=== PATIENT | male | born 1995 | race Caucasian/White ===

== ENCOUNTER → 2017-07-13 08:23 | Outpatient (CLI) | payer OTHER, SELFPAY ==
--- NOTE | 2017-07-13 08:34 | US_ITS ---
STUDY: ABDOMINAL ULTRASOUND REASON FOR EXAM: Male, 22 years old. 4 month history of left abdominal pain. TECHNIQUE: Transabdominal ultrasound was performed with real-time and static florez scale imaging. TECHNICAL QUALITY: Adequate. COMPARISON: None. FINDINGS: Liver: The liver measures 14.6 cm. There is normal echogenicity of the liver. The bile ducts are within normal limits. There is hepatic color flow. The direction of portal flow is hepatopetal. There is no demonstrated mass lesion. Portal vein measurement: Gallbladder: Normal distended gallbladder. The gallbladder wall measures 2.6 mm. There is a negative sonographic Corona's sign. There is no pericholecystic fluid. There are no gallstones. Common Bile Duct (C.B.D.): The common bile duct measures 4.0 mm. Pancreas: Normal size of the head, body and tail of the pancreas. There is normal echogenicity of the pancreas. There is no demonstrated pancreatic mass or cyst. Spleen: Normal size of the spleen. The spleen measures 11.2 cm x 4.7 cm x 4.6 cm. Right Kidney: Normal size of the right kidney. The right kidney measures 10.8 cm x 4.9 cm x 4.9 cm. Normal renal cortex. The right cortex measures 1.7 cm. There is no demonstrated renal mass or cyst. There is no right hydronephrosis. Left Kidney: Normal size of the left kidney. The left kidney measures 10.6 cm x 5.5 cm x 5.8 cm. Normal renal cortex. The left cortex measures 1.6 cm. There is no demonstrated renal mass or cyst. There is no left hydronephrosis. Aorta: Unremarkable I.V.C.: The IVC is patent. There is no ascites. US/Abdomen Complete IMPRESSION: Normal abdominal ultrasound examination. Electronically Signed: Jason Sarkar MD at 14:14 EST Tel [phone], Service support ,
== END ==
PROVIDERS: Family Provider Family Medicine; PCP Family Medicine; Visit Provider Family Medicine
DX: R10.9 Unspecified abdominal pain (principal)
CPT/HCPCS: 76700

== ENCOUNTER → 2017-08-07 07:10 | Outpatient (CLI) | payer OTHER, SELFPAY ==
--- NOTE | 2017-08-07 07:12 | CT_ITS ---
STUDY: CT ABDOMEN AND PELVIS WITH CONTRAST REASON FOR EXAM: Male, 22 years old. Left lower quadrant pain and pressure. RADIATION DOSAGE (If Supplied By Facility): CTDIvol = ( 9.15 ) mGy, DLP = ( 412.84 ) mGycm TECHNIQUE: Transaxial images were obtained from the dome of the diaphragm to the symphysis pubis with oral contrast. 100CC ml of Isovue 300 contrast was administered. Sagittal and coronal images were reconstructed. Individualized dose optimization techniques were used for this CT. COMPARISON: None. FINDINGS: The visualized lung bases are unremarkable. The visualized portions of the heart are within normal limits. Normal liver. Normal gallbladder and extrahepatic biliary system. Normal spleen. Normal pancreas. Normal bilateral adrenal glands. Normal right kidney. Normal left kidney. Normal visualized stomach. Normal small intestine. There are scattered colonic diverticula consistent with diverticulosis. The appendix is visualized and appears normal. Normal abdominal aorta. Normal inferior vena cava. Normal retroperitoneum. Normal urinary bladder. Normal abdominal wall. Straightening of the normal lumbar lordosis. CT/Abdomen/Pelvis WITH Contrast IMPRESSION: Scattered sigmoid diverticula. No inflammatory changes are seen at this time. Electronically Signed: Jason Sarkar MD at 12:58 EST Tel [phone], Service support ,
== END ==
PROVIDERS: Family Provider Family Medicine; PCP Family Medicine; Visit Provider Family Medicine
DX: R10.9 Unspecified abdominal pain (principal)
CPT/HCPCS: 74177; Q9967

== ENCOUNTER 2018-01-14 01:11 | Emergency (ER) | payer OTHER, SELFPAY ==
[2018-01-14 01:11] VITALS: BP 155/90; PULSE 94; RESP 16; TEMP 37.1; O2SAT 100; BMI 24.5
--- NOTE | 2018-01-14 01:47 | EKG12_ITS ---
Test Reason : NEURO Blood Pressure : / mmHG Vent. Rate : 090 BPM Atrial Rate : 090 BPM P-R Int : 150 ms QRS Dur : 100 ms QT Int : 346 ms P-R-T Axes : 071 051 042 degrees QTc Int : 423 ms Normal sinus rhythm Normal ECG Confirmed by JAX RM MD ([id number]), editor continuity and script [employer] ([id number]) on 01/15/2018 3:18:20 PM Referred By: ELIZABETH Confirmed By:JAX RM MD
--- NOTE | 2018-01-14 01:47 | CT_ITS ---
STUDY: CT BRAIN WITHOUT CONTRAST REASON FOR EXAM: Male, 22 years old. LT VISUAL CHANGE X 2 AND LT SIDED TINGLING X 1 YEAR,ELEVATED BP,PT WAS TOLD HE HAS HENSON'S PALSY,SHIELDED RADIATION DOSAGE (If Supplied By Facility): CTDIvol = ( 44.99 ) mGy, DLP = ( 796.11 ) mGycm TECHNIQUE: Transaxial CT imaging of the brain was performed without administration of intravenous contrast material. Individualized dose optimization techniques were used for this CT. COMPARISON: None. FINDINGS: Normal soft tissue structures. Normal calvarium. Normal size ventricles and extra-axial spaces for the patient's age. Normal white matter tracts of the cerebral hemispheres. Normal basal ganglia and thalami. Normal brainstem. Normal cerebellum. There is no intracranial hemorrhage. There are no findings of an acute ischemic infarction. Normal visualized paranasal sinuses. CT/Brain/Head without Contrast IMPRESSION: Normal unenhanced CT scan of the brain. Electronically Signed: Radha Rousseau MD at 2:26 EDT Tel , Service support ,
--- NOTE | 2018-01-14 01:51 | ED.DCSUM_ITS ---
- ER Visit Summary Date of Service: 01/14/18 Chief Complaint: Left-sided visual change History of Present Illness: The patient is a 22 M states for the last year he has had intermittent episodes where he has decreased or blurry vision in his left eye. He usually returns. He is also had some left-sided tingling. He has never had any imaging studies for this. He said one time he was told it might of been a migraine headache. Another time he was told he may have had Bravo's palsy because he had facial paralysis at that time. He said tonight it occurred while at work and he had a headache after the episode. He states his vision is slightly decreased but much better than it was an hour ago. He denies any trouble moving his arms or legs. Denies any trouble walking currently. Denies any head trauma. Otherwise he has no other significant past medical currently is on no medications. Physical Examination: Very well-appearing young male. Vital signs are stable and afebrile. HEENT exam unremarkable. No facial droop. Tongue midline. Normal speech. Pupils are round reactive light. Extraocular motions are intact. No nystagmus. No entrapment. He is able to wrinkle his forehead. Neck nontender. Lungs clear to auscultation bilaterally. Heart regular rhythm no murmur. Abdomen soft nontender. Normal bowel sounds no peritoneal signs. He is moving all 4 extremities. They are neurovascularly intact. He has 5 out of 5 ticket maker strength in the upper extremities. Normal range of motion. Dorsi plantar flexion intact. 5 out of 5 motor strength normal sensation. Back exam normal. Neurologic exam is normal. His NIH 0. Fingertip to nose and heel to thompson are both within normal limits. He gets up and ambulates without any difficulty. Negative Romberg. He can tight rope walk without any difficulty and no ataxia. He has normal speech and no facial droop. Test Results: CBC normal. BMP normal. Visual acuity 20/20 right eye and left eye and bilaterally. Normal. EKG sinus rhythm rate of 90 with no acute abnormal is. CT of the brain without contrast showed no acute abnormality read both by the radiologist Emergency Department Course and Treatment: Patient will be treated with IV Toradol for his headache. Treatment Plan: Repeat exam at 49 patient is doing well. Neurologic exam remains normal. His vision is back to normal. His headache is resolved with IV Toradol. He and I discussed all his test results. Disposition: Discharge Impression: Transient decreased left eye vision and headache secondary to migraine This note was generated with [employer] dictation software. It may contain incorrect words, spelling, and punctuation that were not noted in review of the chart prior to signing ED Disposition - Plan for ED Patient: Chief Complaint: Neuro S/Sx Referrals: Justin Johnson [Primary Care Provider] -
[2018-01-14] MEDS: Ketorolac 30 MG/ML Syringe IV (02:00)
[2018-01-14 02:09] LABS: Hematocrit 43.5 % (40-54); Hemoglobin 15.4 g/dl (13.0-16.5); Mean Corp Hgb Conc 35.4 g/gl (32-36); Mean Corpuscular Hgb 31.5 pg (27.0-32.0); Mean Platelet Vol. 9.9 fl (6.2-12.0); Platelet Count 246 K/mm3 (150-450); RBC Distribution Width CV 12.1 % (11.6-14.6); RBC Distribution Width SD 38.8 fl (35.1-43.9); Red Blood Count 4.89 M/mm3 (4.6-6.2); White Blood Count 5.2 K/mm3 (4.4-11.0)
[2018-01-14 02:12] LABS: Scan Indicated on CBC? Y/N NO
[2018-01-14 02:17] LABS: Anion Gap 5 (5-15); BUN 15 mg/dL (7-18); BUN/Creat Ratio 14.2 RATIO (10-20); Calcium,Total 9.2 mg/dL (8.5-10.1); Chloride 106 mmol/L (98-107); Creatinine, Serum 1.06 mg/dL (0.70-1.30); EST Glomerular Filtration Rate 91 mL/min (>60); Est Glom Filt Rate - Afr Amer 110 mL/min (>60); Estimated Creatinine Clearance 107.46 ml/min; Glucose 100 mg/dL (74-106); Potassium 3.8 mmol/L (3.5-5.1); Sodium Level 139 mmol/L (136-145)
--- NOTE | 2018-01-14 02:59 | ED.DEP ---
ED Disposition - Plan for ED Patient: Disposition: Home or Assisted Living Chief Complaint: Neuro S/Sx Instructions: ED Headache Migraine Prescriptions: Sumatriptan Succinate [Imitrex] 25 mg PO Q4H PRN PRN #7 tab PRN Reason: Headache Referrals: Justin Johnson [Primary Care Provider] - As Needed Additional Instructions: All your labs and CAT scan your brain were normal tonight. I feel that your visual change and headache are secondary to a migraine. Follow-up with your as needed.
[2018-01-14 03:05] VITALS: BP 115/75; PULSE 65; RESP 18; O2SAT 99
== END 2018-01-14 03:12 | disposition home or self-care (01) ==
PROVIDERS: Emergency Provider Emergency Medicine; Family Provider Family Medicine; PCP Family Medicine
DX: G43.909 Migraine, unspecified, not intractable, without status migrainosus (principal)
CPT/HCPCS: 70450; 80048; 85027; 93005; 99284; A4216

== ENCOUNTER 2019-01-17 00:05 | Emergency (ER) | payer OTHER, SELFPAY ==
[2019-01-17 00:06] VITALS: BP 125/74; PULSE 82; RESP 18; TEMP 36.6; O2SAT 98; BMI 24.0
[2019-01-17 00:18] VITALS: TEMP 36.6
--- NOTE | 2019-01-17 00:19 | ED.VIS.GEN ---
History of Present Illness Chief Complaint: Laceration Informant: Patient Narrative: She had an injury to his left thumb while at work. He got it caught on a piece of steel and suffered a laceration to the inside of his left thumb. Unsure about his last tetanus. Stated he did not smash it. He comes for wound care. Current severity is mild. Past Medical History - Allergies and Home Meds Allergies/Adverse Reactions: Allergies venom-honey bee [bee venom (honey bee)] Allergy (Verified 01/17/19 00:05) Swelling Primary Care Physician: Justin Johnson MD [Primary Care Provider] - Prior records reviewed: Yes Past Medical History: - - Reviewed Surgical History: - - Reviewed Smoking Status: Never smoker Alcohol: None Drugs: None Review of Systems General: Denies: Chills, Fever, Sweats Eyes: Denies: Visual changes - bilaterally, Diplopia ENT: Denies: Rhinorrhea, Sore throat Cardiovascular: Denies: Chest pain, Palpitations Respiratory: Denies: Dyspnea, Cough, Dyspnea on exertion Gastrointestinal: Denies: Abdominal pain, Nausea, Vomiting, Diarrhea, Melena, Hematochezia Genitourinary: Denies: Dysuria, Hematuria, Frequency Musculoskeletal: Denies: Back pain, Extremity Pain Skin: Reports: Wounds. Denies: Rash Neurological: Denies: Headache, Weakness, Numbness Physical Exam Vital Signs/Narrative: Vital Signs Temp Pulse Resp BP Pulse Ox 01/17/19 00:06 97.9 F 82 18 125/74 H 98 General: Well nourished, Well developed, No Acute Distress Head: Normocephalic, Atraumatic Eyes: Perrl, EOMI ENT: Moist mucous membranes, No rhinorrhea Neck: Supple, Nontender Cardiovascular: Regular rate, Regular rhythm, No murmurs Respiratory: No distress, CTA bilaterally, Chest nontender Abdomen: Soft, Nontender, Nondistended, Normal bowel sounds Back: Nontender, Normal Inspection Extremities: No edema. Negative for: Nontender Skin: Normal color, No rash, Trauma - On3 centimeter laceration to the distal pad left medial thumb. Normal range of motion. Distal neurovascular intact. Neurological: Alert, Oriented x3, Cranial nerves II-XII grossly intact, Normal Strength, Normal Sensation Psychological: Normal affect, Normal Mood Diagnostic/Tx/Re-eval - Medical Decision Making Tetanus updated. Patient consented for wound closure. Wound was cleaned with chlorhexidine. Wash with saline. Anesthetized with 1 cc of 1% lidocaine. No foreign body seen in a bloodless field. Wound was closed with simple suture x2. He will follow-up with Worker[employer]. for suture removal bacitracin applied ED Disposition - Plan for ED Patient: Disposition: Home or Assisted Living Diagnosis: Thumb laceration Instructions: LACERATION, All Referrals: [facility] [GROUP OF PHYSICIANS] - Additional Instructions: Sutures removed in 10 to 14 days
[2019-01-17] MEDS: Diphth,Pertuss(Acell),Tet Vac 0.5 ML Vial IM (00:32)
[2019-01-17] MEDS: BACITRACIN 15 GM Tube 1 APPLIC TOPICAL (00:35)
== END 2019-01-17 00:55 | disposition home or self-care (01) ==
LOC: ED 00:30
PROVIDERS: Emergency Provider Emergency Medicine; Family Provider Family Medicine; PCP Family Medicine
DX: S61.012A Laceration without foreign body of left thumb without damage to nail, initial encounter (principal); W31.9XXA Contact with unspecified machinery, initial encounter; Y93.89 Activity, other specified; Y92.89 Other specified places as the place of occurrence of the external cause; Y99.0 Civilian activity done for income or pay
CPT/HCPCS: 12002; 90471; 90715; 99285